=== PATIENT | female | born 1950 | race Caucasian/White ===

== ENCOUNTER → 2017-03-09 | Day surgery (SDC) | payer BC ==
[~2017-03-09] MED LIST: ALLERGY SHOT SUBQ; CALCIUM PO; CLARITIN10 M2 PO; NORCO 7.5-3251 EACH PO; STOOL SOFTENER50 MG PO; VITAMIN D PO
--- NOTE | ~2017-03-09 | OR ---
Unit #: [id number] #: [id number] Patient: LATRICE BOYD [id number] [address] [place], [place] [address] [id number] MR#: [id number] NAME: LATRICE BOYD ROOM: Date of Procedure: 03/09/2017 Admission Date: 03/09/2017 Surgeon: Abram Duong M.D. : 1950 Attending Physician: Abram Duong M.D. Primary Care Physician: Shimon Baxter M.D. OPERATIVE REPORT PREOPERATIVE DIAGNOSIS Arthrofibrosis of right total knee. POSTOPERATIVE DIAGNOSIS Arthrofibrosis of right total knee. PROCEDURE PERFORMED Manipulation, right total knee. ANESTHESIA General. DESCRIPTION OF PROCEDURE The patient was brought to the operating room, given a general anesthetic. After this was done, the right knee was manipulated. We were able to obtain about 110 degrees of flexion and -5 of extension. There was palpable and audible release of adhesions. She tolerated the procedure well and was moved to the recovery room and she will start physical therapy this afternoon. Dictated by... Leatha Hdez/dalton TD: 03/10/2017 04:41 JOB #: [id number] OPERATIVE REPORT Page 1 of 1 X Abram Duong MD X PROCEDURE OPERATIVE NOTE
== END | disposition home or self-care (01) ==
LOC: CSUR 07:03
DX: M24.661 Ankylosis, right knee (principal); G47.30 Sleep apnea, unspecified; M85.80 Other specified disorders of bone density and structure, unspecified site; M19.90 Unspecified osteoarthritis, unspecified site; Z98.890 Other specified postprocedural states; Z79.899 Other long term (current) drug therapy; Z96.651 Presence of right artificial knee joint
CPT/HCPCS: J2250; J3010